=== PATIENT | female | born 1965 | race African-American/Black ===

== ENCOUNTER 2023-05-31 20:04 | Inpatient (IN) | payer OTHER ==
[~2023-05-31] VITALS: Ht 61 cm; Wt 110.2 kg
[2023-05-31 21:27] LABS: CLARITY URINE CLEAR (CLEAR); COLOR URINE YELLOW (YELLOW); GLUCOSE URINE NEGATIVE (NEGATIVE); KETONES URINE NEGATIVE (NEGATIVE); LEUKOCYTE ESTERASE URINE TRACE (NEGATIVE); NITRITE URINE NEGATIVE (NEGATIVE); OCCULT BLOOD URINE TRACE (NEGATIVE); PH URINE 6.5 (4.5-8.0); PROTEIN URINE TRACE (NEGATIVE); SPECIFIC GRAVITY URINE 1.005 (1.005-1.030); UROBILINOGEN URINE 0.2 E.U./dL (0.2-1.0)
[2023-05-31 21:29] LABS: BACTERIA URINE NONE SEEN; SQUAMOUS EPITHELIAL CELL URINE 1+ /lpf (RARE/1+); WBC URINE 0-2 /hpf (0-2); YEAST URINE NONE SEEN
[2023-05-31 22:14] LABS: BASOPHILS % 0.4 % (0.0-2.0); HEMATOCRIT. 29.6 % (36.0-48.0); HEMOGLOBIN. 9.6 g/dL (12.0-16.0); LYMPHOCYTES % 26.9 % (20.0-50.0); MEAN CORPUSCULAR HEMOGLOBIN 27.3 pg (28.0-32.0); MEAN CORPUSCULAR HGB CONC 32.5 g/dL (31.0-37.0); MEAN CORPUSCULAR VOLUME 83.8 fL (81.0-99.0); MEAN PLATELET VOLUME 10.3 fl (7.4-10.4); MONOCYTES % 7.2 % (2.0-8.0); NEUTROPHILS % 65.5 % (40.0-76.0); PLATELET 88 x1000/uL (130-400); RED BLOOD CELL COUNT 3.53 mill/uL (4.2-5.4); RED CELL DISTRIBUTION WIDTH 20.6 % (11.6-14.6)
[2023-05-31 22:28] LABS: CHLORIDE 108 mEq/L (98-107); INDEX HEMOLYSI 1 (1-3); INDEX ICTERIC 1 (1-4); INDEX LIPEMIC 1 (1-3); POTASSIUM 3.7 mEq/L (3.5-5.1); SODIUM 135 mEq/L (136-145)
[2023-05-31 22:37] LABS: ALANINE AMINOTRANSFERASE 32 IU/L (13-61); ALBUMIN 2.3 g/dL (3.4-5.0); ASPARTATE AMINOTRANSFERASE 84 IU/L (15-37); BILIRUBIN TOTAL 0.3 mg/dL (0.1-1.0); CALCIUM 7.8 mg/dL (8.5-10.1); CARBON DIOXIDE 22 mEq/L (21-32); CREATINE KINASE 169 IU/L (26-192); CREATININE 0.6 mg/dL (0.6-1.3); GLUCOSE 181 mg/dL (70-105); PROTEIN TOTAL 7.1 g/dL (6.0-8.3); UREA NITROGEN BLOOD 10 mg/dL (7-21)
[2023-05-31 22:56] LABS: LACTIC ACID 2.9 mmol/L (0.4-2.0)
[2023-05-31 22:57] LABS: TROPONIN I HIGH SENSITIVITY 88 ng/L (<54)
[2023-05-31] MEDS ORDERED: AZITHROMYCIN 500MG/250ML 250 ML IV ONE (23:45)
[2023-05-31] MEDS ORDERED: SODIUM CHLORIDE 0.9% 1,000 ML IV ONE (23:45)
[2023-05-31] MEDS ORDERED: CEFTRIAXONE 1GM PREMIX 50 ML IV ONE (23:45)
[2023-06-01] MEDS ORDERED: DEXTROSE 50% WATER 50ML SYRINGE IV ONE (03:15)
[2023-06-01 05:00] VITALS: BP 91/68; PULSE 77; RESP 20; TEMP 98.9
[2023-06-01] MEDS ORDERED: DOCUSATE SODIUM 100MG CAPSULE PO PRN (05:00)
[2023-06-01] MEDS ORDERED: CLONIDINE 0.1MG TABLET PO PRN (05:00)
[2023-06-01] MEDS ORDERED: GUAIFENESIN 200MG/10ML SUGAR FREE UDC PO PRN (05:00)
[2023-06-01] MEDS ORDERED: MAGNESIUM/ALUMINUM HYDROXIDE/SIMETHICONE 30ML UDC PO PRN (05:00)
[2023-06-01] MEDS ORDERED: ACETAMINOPHEN 325MG TABLET PO PRN ×2 (05:00)
[2023-06-01] MEDS ORDERED: IPRATROPIUM/ALBUTEROL 0.5-3(2.5)MG/3ML NEB HHN PRN (05:00)
[2023-06-01] MEDS ORDERED: ONDANSETRON HCL 4MG/2ML INJ IV PRN (05:00)
[2023-06-01 07:21] VITALS: BP 91/68; PULSE 77; RESP 5; TEMP 98.8
[2023-06-01 08:00] VITALS: BP 166/74; PULSE 51; RESP 18; TEMP 98.6
[2023-06-01] MEDS: BLOOD SUGAR DIAGNOSTIC STRIP TEST SCH ×4 (08:23→21:26)
[2023-06-01] MEDS ORDERED: HYDROCODONE/ACETAMINOPHEN 5/325MG TABLET PO PRN (08:30)
[2023-06-01] MEDS ORDERED: NITROGLYCERIN 0.4MG TABLET SL SL PRN (09:30)
[2023-06-01] MEDS ORDERED: ENOXAPARIN 40MG/0.4ML SYR SUBCUT SCH (10:00)
[2023-06-01 10:26] LABS: CREATINE KINASE MB FRACTION 2.7 ng/mL (0.5-3.6)
[2023-06-01 11:51] LABS: INDEX HEMOLYSI 4 (1-3); INDEX ICTERIC 1 (1-4); INDEX LIPEMIC 1 (1-3)
[2023-06-01 11:58] LABS: ETHANOL BLOOD < 10 mg/dL (-10); T4 FREE 1.02 ng/dL (0.76-1.46); TOTAL IRON BINDING CAPACITY 149 ug/dL (250-450)
[2023-06-01 12:00] VITALS: BP 110/44; PULSE 48; RESP 20; TEMP 98.8
[2023-06-01 12:00] LABS: IRON 68 ug/dL (50-175)
[2023-06-01 12:13] LABS: FOLIC ACID (FOLATE) SERUM 17.5 ng/mL (>5.38)
[2023-06-01] MEDS: NYSTATIN 100,000 UNITS/GM CREAM 15GM TOP SCH ×2 (12:27→16:50)
[2023-06-01] MEDS: MENTHOL/LANOLIN/CALAMINE/ZN OX OINT 71GM TOP SCH ×2 (12:27→16:50)
[2023-06-01] MEDS: KETOROLAC 30MG/ML VIAL IV PRN (13:21)
[2023-06-01] MEDS ORDERED: METO-539 PO (13:40)
[2023-06-01] MEDS ORDERED: DILT90CA PO (13:40)
[2023-06-01 14:30] LABS: *AMPHETAMINES SCREEN URINE NEGATIVE (NEGATIVE); *BARBITURATES SCREEN URINE NEGATIVE (NEGATIVE); *BENZODIAZEPINES SCREEN URINE NEGATIVE (NEGATIVE); *COCAINE SCREEN URINE NEGATIVE (NEGATIVE); CANNABINOID URINE SCREEN NEGATIVE (NEGATIVE); ECSTASY MDMA SCREEN URINE NEGATIVE (NEGATIVE); METHADONE URINE SCREEN NEGATIVE (NEGATIVE); OPIATES URINE SCREEN PRESUMTIVE POSITIVE (NEGATIVE); PHENCYCLIDINE URINE SCREEN NEGATIVE (NEGATIVE)
[2023-06-01] MEDS: METOPROLOL TARTRATE 50MG TABLET PO SCH ×2 (14:35→21:00)
[2023-06-01] MEDS ORDERED: DILTIAZEM HCL 90MG CAPSULE SR 12HR PO SCH (15:00)
[2023-06-01 16:00] VITALS: BP 101/71; PULSE 92; RESP 18; TEMP 98.2
[2023-06-01] MEDS ORDERED: FURO40TA5 PO (16:44)
[2023-06-01] MEDS: DEXTROSE 50% WATER 50ML SYRINGE IV PRN (16:49)
[2023-06-01] MEDS ORDERED: FUROSEMIDE 20MG TABLET PO SCH (17:30)
[2023-06-01] MEDS ORDERED: LOPERAMIDE HCL 2MG CAPSULE PO NR (17:30)
[2023-06-01 20:00] VITALS: BP 99/65; PULSE 99; RESP 20; TEMP 100.8
[2023-06-01] MEDS: FUROSEMIDE 20MG/2ML VIAL IVP SCH (20:25)
[2023-06-01] MEDS: APIXABAN 5 MG TABLET PO SCH (20:25)
[2023-06-01] MEDS ORDERED: ZOLPIDEM TARTRATE 5MG TABLET PO PRN (21:00)
[2023-06-01] MEDS: AMIODARONE HCL 200 MG TABLET PO SCH (21:00)
[2023-06-01] MEDS: FAMOTIDINE 20MG TABLET PO SCH (21:35)
[2023-06-01 22:27] LABS: CREATINE KINASE MB FRACTION 2.3 ng/mL (0.5-3.6)
[2023-06-01] MEDS ORDERED: SODIUM CHLORIDE 0.9% 250 ML IV ONE (22:30)
[2023-06-02] VITALS (8 sets, daily range): BP systolic 98–132; BP diastolic 50–71; PULSE 44–96; RESP 18–20; TEMP 96.9–97.9
[2023-06-02] MEDS: DEXTROSE 50% WATER 50ML SYRINGE IV PRN ×2 (06:36→11:55)
[2023-06-02] MEDS: BLOOD SUGAR DIAGNOSTIC STRIP TEST SCH ×4 (07:40→20:42)
[2023-06-02] MEDS: METOPROLOL TARTRATE 50MG TABLET PO SCH ×2 (09:00→20:37)
[2023-06-02] MEDS: APIXABAN 5 MG TABLET PO SCH ×2 (09:48→17:04)
[2023-06-02] MEDS: MENTHOL/LANOLIN/CALAMINE/ZN OX OINT 71GM TOP SCH ×2 (09:51→17:05)
[2023-06-02] MEDS: NYSTATIN 100,000 UNITS/GM CREAM 15GM TOP SCH ×2 (09:51→17:05)
[2023-06-02] MEDS: FUROSEMIDE 20MG/2ML VIAL IVP SCH (09:51)
[2023-06-02] MEDS ORDERED: MEROPENEM 1,000 MG in SODIUM CHLORIDE 0.9% 100 ML IV SCH (10:00)
[2023-06-02 10:17] LABS: BASOPHILS % 0.6 % (0.0-2.0); HEMATOCRIT. 29.6 % (36.0-48.0); HEMOGLOBIN. 9.3 g/dL (12.0-16.0); LYMPHOCYTES % 39.2 % (20.0-50.0); MEAN CORPUSCULAR HEMOGLOBIN 26.8 pg (28.0-32.0); MEAN CORPUSCULAR HGB CONC 31.5 g/dL (31.0-37.0); MEAN PLATELET VOLUME 10.9 fl (7.4-10.4); MONOCYTES % 7.4 % (2.0-8.0); NEUTROPHILS % 52.8 % (40.0-76.0); PLATELET 80 x1000/uL (130-400); RED BLOOD CELL COUNT 3.48 mill/uL (4.2-5.4); RED CELL DISTRIBUTION WIDTH 21.4 % (11.6-14.6)
[2023-06-02 10:35] LABS: CHLORIDE 105 mEq/L (98-107); INDEX HEMOLYSI 1 (1-3); INDEX ICTERIC 1 (1-4); INDEX LIPEMIC 1 (1-3); POTASSIUM 4.1 mEq/L (3.5-5.1); SODIUM 131 mEq/L (136-145)
[2023-06-02 10:42] LABS: CREATINE KINASE MB FRACTION 3.7 ng/mL (0.5-3.6)
[2023-06-02 10:50] LABS: ALANINE AMINOTRANSFERASE 31 IU/L (13-61); ALBUMIN 2.3 g/dL (3.4-5.0); ASPARTATE AMINOTRANSFERASE 59 IU/L (15-37); BILIRUBIN TOTAL 0.3 mg/dL (0.1-1.0); CALCIUM 7.8 mg/dL (8.5-10.1); CARBON DIOXIDE 23 mEq/L (21-32); CHOLESTEROL 82 mg/dL (<200); CREATININE 0.9 mg/dL (0.6-1.3); GLUCOSE 85 mg/dL (70-105); HDL CHOLESTEROL 33 mg/dL (40-59); LDL CHOLESTEROL 42 mg/dL (5-100); PROTEIN TOTAL 7.1 g/dL (6.0-8.3); T4 FREE 1.04 ng/dL (0.76-1.46); TRIGLYCERIDE 111 mg/dL (0-150); UREA NITROGEN BLOOD 14 mg/dL (7-21)
[2023-06-02] MEDS: KETOROLAC 30MG/ML VIAL IV PRN (13:14)
[2023-06-02] MEDS: AMIODARONE HCL 200 MG TABLET PO SCH ×2 (14:01→20:41)
[2023-06-02] MEDS ORDERED: LOPERAMIDE HCL 2MG CAPSULE PO PRN (16:00)
[2023-06-02 17:22] LABS: TROPONIN I HIGH SENSITIVITY 90 ng/L (<54)
[2023-06-02] MEDS ORDERED: KETOROLAC 15MG/ML VIAL IV PRN (20:15)
[2023-06-02] MEDS: FAMOTIDINE 20MG TABLET PO SCH (20:42)
[2023-06-02 23:39] LABS: TROPONIN I HIGH SENSITIVITY 83 ng/L (<54)
[2023-06-03] VITALS: BP 102/54; PULSE 78; RESP 20; TEMP 98.3
[2023-06-03 04:00] VITALS: BP 102/72; PULSE 72; RESP 19; TEMP 97.7
[2023-06-03] MEDS: DEXTROSE 50% WATER 50ML SYRINGE IV PRN ×2 (05:24→16:22)
[2023-06-03] MEDS: BLOOD SUGAR DIAGNOSTIC STRIP TEST SCH ×3 (06:49→17:08)
[2023-06-03 08:00] VITALS: BP 112/84; PULSE 107; RESP 18; RESP 20; TEMP 98.2
[2023-06-03] MEDS: FUROSEMIDE 20MG/2ML VIAL IVP SCH (08:46)
[2023-06-03] MEDS: AMIODARONE HCL 200 MG TABLET PO SCH (08:47)
[2023-06-03] MEDS: NYSTATIN 100,000 UNITS/GM CREAM 15GM TOP SCH (08:48)
[2023-06-03] MEDS: METOPROLOL TARTRATE 50MG TABLET PO SCH (08:48)
[2023-06-03] MEDS: MENTHOL/LANOLIN/CALAMINE/ZN OX OINT 71GM TOP SCH (08:49)
[2023-06-03] MEDS ORDERED: DEXT 10% WATER 1,000 ML IV SCH (09:00)
[2023-06-03] MEDS: APIXABAN 5 MG TABLET PO SCH (09:59)
[2023-06-03] MEDS ORDERED: AMI2 PO (11:27)
[2023-06-03] MEDS ORDERED: APIX5TAB PO (11:27)
[2023-06-03] MEDS ORDERED: NYST15CR37 TOP (11:27)
[2023-06-03 12:00] VITALS: BP 110/60; PULSE 101; RESP 18; TEMP 97.8
[2023-06-03 15:36] LABS: HEMATOCRIT 27.8 % (36.0-48.0); HEMOGLOBIN 9.1 g/dL (12.0-16.0); MEAN CORPUSCULAR HEMOGLOBIN 27.3 pg (28.0-32.0); MEAN CORPUSCULAR HGB CONC 32.7 g/dL (31.0-37.0); MEAN CORPUSCULAR VOLUME 83.5 fL (81.0-99.0); PLATELET 65 x1000/uL (130-400); RED BLOOD CELL COUNT 3.33 mill/uL (4.2-5.4)
[2023-06-03 15:47] LABS: CHLORIDE 104 mEq/L (98-107); INDEX HEMOLYSI 1 (1-3); INDEX ICTERIC 1 (1-4); INDEX LIPEMIC 1 (1-3); POTASSIUM 4.4 mEq/L (3.5-5.1); SODIUM 133 mEq/L (136-145)
[2023-06-03 15:56] LABS: ALANINE AMINOTRANSFERASE 29 IU/L (13-61); ALBUMIN 2.2 g/dL (3.4-5.0); ASPARTATE AMINOTRANSFERASE 50 IU/L (15-37); BILIRUBIN TOTAL 0.4 mg/dL (0.1-1.0); CALCIUM 7.3 mg/dL (8.5-10.1); CARBON DIOXIDE 24 mEq/L (21-32); CREATININE 0.7 mg/dL (0.6-1.3); GLUCOSE 84 mg/dL (70-105); PROTEIN TOTAL 6.7 g/dL (6.0-8.3); UREA NITROGEN BLOOD 16 mg/dL (7-21)
[2023-06-03 16:00] VITALS: BP 108/70; PULSE 63; RESP 18; TEMP 97.1
[2023-06-03 16:47] VITALS: BP 108/70; PULSE 63; TEMP 97.1; O2SAT 96
[2023-06-03 16:48] LABS: TROPONIN I HIGH SENSITIVITY 73 ng/L (<54)
[2023-06-03] MEDS ORDERED: PANTOPRAZOLE 40MG DR TABLET PO SCH (21:00)
== END 2023-06-03 17:52 | disposition short-term general hospital (02) | DRG 637 ==
LOC: ER 20:04 → 7WST 06-01 05:14
PROVIDERS: ADMIT Internal Medicine; ATTEND Internal Medicine
DX: E11.649 Type 2 diabetes mellitus with hypoglycemia without coma (principal); E43 Unspecified severe protein-calorie malnutrition; I50.23 Acute on chronic systolic (congestive) heart failure; D61.818 Other pancytopenia; E87.1 Hypo-osmolality and hyponatremia; E87.20 Acidosis, unspecified; I24.8 Other forms of acute ischemic heart disease; I31.39 Other pericardial effusion (noninflammatory); I47.20 Ventricular tachycardia, unspecified; I48.19 Other persistent atrial fibrillation; I42.9 Cardiomyopathy, unspecified; E03.8 Other specified hypothyroidism; E86.1 Hypovolemia; I49.3 Ventricular premature depolarization; I34.0 Nonrheumatic mitral (valve) insufficiency; R19.7 Diarrhea, unspecified; M19.90 Unspecified osteoarthritis, unspecified site; J45.909 Unspecified asthma, uncomplicated; R21 Rash and other nonspecific skin eruption; B36.9 Superficial mycosis, unspecified; Z20.822 Contact with and (suspected) exposure to COVID-19
CPT/HCPCS: 36415; 71045; 80053; 80061; 80305; 80320; 81003; 82533; 82550; 82553; 82607; 82746; 82962; 83036; 83519; 83540; 83550; 83605; 84439; 84443; 84484; 85025; 85027; 87015; 87045; 87426; 87427; 87449; 87493; 93005; 93306; 99291; C9803; J0456; J0696; J1650; J1885; J1940; J2185; J7030; J7050; G0480

== ENCOUNTER 2025-06-18 05:51 | Emergency (ER) | payer OTHER ==
[~2025-06-18] VITALS: Ht 177.8 cm; Wt 114.0 kg
[2025-06-18 05:51] VITALS: TEMP 37.8; O2SAT 94
[~2025-06-18 05:51] MED LIST: AMI2 PO; APIX5TAB PO; FURO40TA5 PO; METO-539 PO; NYST15CR31 TOP
[2025-06-18] MEDS: DEXTROSE 50% WATER 50ML SYRINGE IV ONE ×3 (06:02→06:36)
[2025-06-18 06:32] LABS: HEMATOCRIT. 23.7 % (36.0-48.0); HEMOGLOBIN. 7.6 g/dL (12.0-16.0); MEAN PLATELET VOLUME 10.8 fl (7.4-10.4); PLATELET 134 x1000/uL (130-400); RED BLOOD CELL COUNT 2.50 mill/uL (4.2-5.4); RED CELL DISTRIBUTION WIDTH 23.7 % (11.6-14.6)
[2025-06-18] MEDS: GLUCAGON,HUMAN RECOMBINANT 1MG/VIAL IM ONE (06:40)
[2025-06-18] MEDS: PIPERACILLIN/TAZO 3.375G/50ML 50 ML IV ONE (06:40)
[2025-06-18] MEDS: SODIUM CHLORIDE 0.9% (SEPSIS BOLUS) IV ONE (06:42)
[2025-06-18 06:44] LABS: INR 1.5
[2025-06-18 07:00] LABS: CREATININE 2.2 mg/dL (0.6-1.0); UREA NITROGEN BLOOD 45 mg/dL (9-23)
[2025-06-18 07:02] LABS: ASPARTATE AMINOTRANSFERASE 121 IU/L (<34); BILIRUBIN DIRECT 0.7 mg/dL (<=3.0); BILIRUBIN TOTAL 1.3 mg/dL (0.1-1.0)
[2025-06-18] MEDS: VANCOMYCIN 1G PREMIX 200 ML IV ONE (07:03)
[2025-06-18 07:05] LABS: PROTEIN TOTAL 4.3 g/dL (6.0-8.3)
[2025-06-18 07:16] VITALS: BP 103/75; PULSE 155; RESP 35; O2SAT 100
[2025-06-18] MEDS ORDERED: DEXTROSE 50% WATER 50ML SYRINGE IV ONE (07:30)
[2025-06-18] MEDS ORDERED: DEXTROSE 5% WATER 1,000 ML IV ONE (07:30)
[2025-06-18] MEDS ORDERED: AMIODARONE 360MG/200ML 200 ML IV SCH (07:30)
[2025-06-18] MEDS ORDERED: NOREPINEPHRINE 8MG/250ML PMX 250 ML IV ONE (07:40)
[2025-06-18 08:47] LABS: BAND% 9.0 % (1.0-6.0); LYMPHOCYTES % MANUAL 4.0 % (20.0-60.0); MONOCYTES % MANUAL 4.0 % (2.0-8.0); NEUTROPHILS % MANUAL 83.0 % (45.0-75.0); NUCLEATED RED BLOOD CELLS 5 /100 WBC; PLATELET ESTIMATE NORMAL
[2025-06-19] MEDS ORDERED: NOREPINEPHRINE 8MG/250ML PMX 250 ML IV ONE (08:15)
== END 2025-06-18 08:02 ==
LOC: ER 05:51 → CANBEDREQ 08:21
DX: A41.9 Sepsis, unspecified organism (principal); R65.21 Severe sepsis with septic shock; E11.649 Type 2 diabetes mellitus with hypoglycemia without coma; I46.9 Cardiac arrest, cause unspecified; F19.90 Other psychoactive substance use, unspecified, uncomplicated; J45.909 Unspecified asthma, uncomplicated; Z79.899 Other long term (current) drug therapy; Z85.07 Personal history of malignant neoplasm of pancreas
CPT/HCPCS: 80076; 80048; 82962; 83605; 85025; 85610; 87040; 36415; 84145; 71045; 93005; 96368; 92950; 96365; 96372; 96375; 96376; 99291; 99292; J0282; J1610; J3490; J2543; J3373; J7070; J7030; Z7610 ×2